=== PATIENT | male | born 1995 | race Caucasian/White ===

== ENCOUNTER 2022-01-06 11:02 | Emergency (ER) | payer OTHER ==
--- NOTE | 2022-01-06 11:11 | NUR ---
called for triage. no answer.
--- NOTE | 2022-01-06 11:22 | NUR ---
CALLED FOR TRIAGE. NO ANSWER AT THIS TIME.
--- NOTE | 2022-01-06 11:27 | NUR ---
CALLED FOR TRIAGE, UNABLE TO LOCATE PT IN TENT OR WAITING ROOM.
--- NOTE | 2022-01-06 11:35 | NUR ---
Patient left without being seen.
== END 2022-01-06 11:35 | disposition left against medical advice (07) ==
LOC: SED 11:02
DX: R50.9 Fever, unspecified (principal); Z53.21 Procedure and treatment not carried out due to patient leaving prior to being seen by health care provider